=== PATIENT | male | born 1980 | race Two or more races ===

== ENCOUNTER 2023-05-21 23:10 | Inpatient (IN) | payer MEDICAID, OTHER ==
[~2023-05-21] VITALS: Ht 170.2 cm; Wt 81.9 kg
[2023-05-21 23:56] LABS: BASOPHILS % (AUTO) 1.2 % (0.0-2.0); EOSINOPHILS % (AUTO) 5.9 % (1.0-6.0); HEMATOCRIT 40.3 % (41-53); HEMOGLOBIN 13.5 g/dL (13.5-17.5); LYMPHOCYTES # (AUTO) 2.1 K/uL (1.0-4.8); LYMPHOCYTES % (AUTO) 35.5 % (22.0-44.0); MEAN CORPUSCULAR HEMOGLOBIN 28.5 pg (26.0-34.0); MEAN CORPUSCULAR HGB CONC 33.6 G/dL (31.0-37.0); MEAN CORPUSCULAR VOLUME 85 fL (80-100); MONOCYTES # (AUTO) 0.4 K/uL (0.1-1.0); MONOCYTES % (AUTO) 7.2 % (2.0-9.0); NEUTROPHILS # (AUTO) 2.9 K/uL (1.8-7.7); NEUTROPHILS % (AUTO) 50.2 % (40.0-70.0); PLATELET COUNT (AUTO) 323 K/uL (150-450); RED BLOOD CELL COUNT(AUTO) 4.76 MIL/uL (4.50-5.90); RED CELL DISTRIBUTION WIDTH 13.8 % (11.5-14.5); WHITE BLOOD COUNT (AUTO) 5.8 K/uL (4.5-11.0)
[2023-05-22] MEDS: LORazepam 2 MG/ML VIAL IM ONE (00:05)
[2023-05-22] MEDS: HALOPERIDOL LACTATE 5 MG/ML VIAL IM ONE (00:05)
[2023-05-22] MEDS: DiphenhydrAMINE HCL 50 MG/ML VIAL IM ONE (00:05)
[2023-05-22 00:08] LABS: ANION GAP 8 mmol/L (8-16); CALCIUM, TOTAL 9.3 mg/dL (8.8-10.5); CARBON DIOXIDE 29 mmol/L (22-29); CHLORIDE 104 mmol/L (98-107); CREATININE 0.74 mg/dL (0.60-1.30); GLOMERULAR FILTR. RATE CALC > 60 mL/min (>60); GLUCOSE,RANDOM 107 mg/dL (70-110); POTASSIUM 3.8 mmol/L (3.5-5.1); SODIUM SERUM 141 mmol/L (136-145); UREA NITROGEN, BLOOD 15 mg/dL (7-18)
[2023-05-22 00:14] LABS: ALANINE AMINOTRANSFERASE 31 U/L (12-78); ALBUMIN 3.5 g/dL (3.4-5.0); ALKALINE PHOSPHATASE 68 U/L (46-116); ASPARTATE AMINOTRANSFERASE 23 U/L (15-37); BILIRUBIN,TOTAL 0.3 mg/dL (0.1-1.0); TOTAL PROTEIN, SERUM 6.8 g/dL (6.4-8.2)
[2023-05-22 00:29] LABS: ALCOHOL, BLOOD (SERUM) < 3 mg/dL (0-10)
[2023-05-22] MEDS ORDERED: QUEtiapine FUMARATE 100 MG TABLET PO PRN (01:00)
[2023-05-22] MEDS ORDERED: OLANZapine 5 MG RAPDIS TABLET PO PRN ×3 (02:00→02:15)
[2023-05-22 07:41] LABS: COVID AG,FIA SOURCE NASAL SWAB
[2023-05-22 08:06] LABS: SARS-COV2 (COVID) ANTIGEN,FIA Negative (Negative)
[2023-05-22 08:26] LABS: APPEARANCE,URINE CLEAR (CLEAR); BILIRUBIN,URINE NEGATIVE (NEGATIVE); COLOR,URINE LIGHT YELLOW (YELLOW); GLUCOSE, URINE (UA) NEGATIVE (NEGATIVE); KETONES,URINE NEGATIVE (NEGATIVE); LEUKOCYTE ESTERASE ,URINE SMALL (NEGATIVE); NITRATE,URINE NEGATIVE (NEGATIVE); OCCULT BLOOD,URINE NEGATIVE (NEGATIVE); PH,URINE 6.5 (5.0-8.0); PH,URINE DRUG SCREEN 6.5 (5.0-8.0); PROTEIN,URINE TRACE mg/dL (NEGATIVE); SPECIFIC GRAVITIY, URINE 1.027 (1.003-1.030); UROBILINOGEN,URINE <=1.0 mg/dL (<=1.0)
[2023-05-22 08:33] LABS: ALCOHOL, URINE DRUG SCREEN NEGATIVE (NEGATIVE); AMPHET/METH SCREEN,URINE POSITIVE (NEGATIVE); BARBITURATE SCREEN, URINE NEGATIVE (NEGATIVE); BENZODIAZEPINES SCREEN,URINE NEGATIVE (NEGATIVE); CANNABINOID SCREEN,URINE POSITIVE (NEGATIVE); COCAINE SCREEN,URINE NEGATIVE (NEGATIVE); METHADONE SCREEN, URINE NEGATIVE (NEGATIVE); OPIATE SCREEN,URINE NEGATIVE (NEGATIVE); PHENCYCLIDINE SCREEN,URINE POSITIVE (NEGATIVE)
[2023-05-22 08:36] LABS: RBC,URINE 0-2 /HPF (0-2)
[2023-05-22 08:37] LABS: BACTERIA,URINE Few /HPF (None Seen)
[2023-05-22 08:50] VITALS: BP 130/77; PULSE 65; RESP 16; TEMP 97.2; O2SAT 100
[2023-05-22] MEDS ORDERED: GuaiFENesin/D-METHORPHAN [SUGAR-FREE] 200-20MG/10 ML SYRUP UDCUP PO PRN (14:00)
[2023-05-22] MEDS ORDERED: PROMETHAZINE HCL 25 MG TABLET PO PRN (14:00)
[2023-05-22] MEDS ORDERED: MAG HYDROX/ALUMINUM HYD/SIMETH ES 30 ML SUSPENSION UDCUP PO PRN (14:00)
[2023-05-22] MEDS ORDERED: HydrOXYzine PAMOATE 50 MG CAPSULE PO PRN (14:00)
[2023-05-22] MEDS ORDERED: MAGNESIUM HYDROXIDE SUSPENSION 30 ML UDCUP PO PRN (14:00)
[2023-05-22] MEDS ORDERED: LOPERAMIDE HCL 2 MG CAPSULE PO PRN (14:00)
[2023-05-22] MEDS ORDERED: TUBERCULIN, PURIFIED PROTEIN DERIVATIVE 5 TU/0.1 ML SYRINGE ID ONE (14:00)
[2023-05-22 16:26] VITALS: BP 131/78; PULSE 62; RESP 12; TEMP 98.4; O2SAT 97
[2023-05-22] MEDS: THIAMINE 100 MG TABLET PO SCH (17:27)
[2023-05-22] MEDS: INFLUENZA VIRUS VACCINE QVS 2023-24 (6MO+)/PF 60 MCG/0.5 ML SYRINGE IM. ONE (20:15)
[2023-05-22] MEDS: OLANZapine 5 MG RAPDIS TABLET PO SCH (20:35)
[2023-05-22] MEDS: MELATONIN 5 MG TABLET PO SCH (20:35)
[2023-05-22] MEDS: IBUPROFEN 600 MG TABLET PO PRN (20:36)
[2023-05-22 21:19] VITALS: BP 136/76; PULSE 68; RESP 19; TEMP 98.6; O2SAT 99
[2023-05-22 21:20] VITALS: RESP 19
[2023-05-22 21:36] VITALS: RESP 18
[2023-05-23] MEDS: LORazepam 2 MG TABLET PO PRN (08:09)
[2023-05-23] MEDS: FOLIC ACID 1 MG TABLET PO SCH (08:09)
[2023-05-23] MEDS: OMEGA-3/DHA/EPA/FISH OIL 1,000 MG CAPSULE PO SCH (08:09)
[2023-05-23] MEDS: MULTIVITAMINS WITH MINERALS, THERAPEUTIC TABLET PO SCH (08:09)
[2023-05-23] MEDS: NALTREXONE HCL 50 MG TABLET PO SCH (08:09)
[2023-05-23 08:20] LABS: CHOL/HDL RATIO 2.9 (4.2-7.3); THYROID STIMULATING HORMONE 0.78 uIU/mL (0.36-3.74)
[2023-05-23 08:43] VITALS: BP 131/81; PULSE 65; RESP 19; TEMP 97.4; O2SAT 100
[2023-05-23] MEDS: OLANZapine 10 MG RAPDIS TABLET PO SCH (20:18)
[2023-05-23 21:55] VITALS: BP 128/86; PULSE 72; RESP 18; TEMP 98.6; O2SAT 99
[2023-05-24 08:52] VITALS: BP 124/86; PULSE 74; RESP 17; TEMP 97.6; O2SAT 98
[2023-05-24 09:26] VITALS: BP 124/86; PULSE 74; RESP 17; TEMP 97.6; O2SAT 98
[2023-05-24 21:42] VITALS: BP 118/88; PULSE 92; RESP 17; TEMP 98; O2SAT 98
[2023-05-25] MEDS: ZOLPIDEM TARTRATE 10 MG TABLET PO PRN (03:09)
[2023-05-25 03:10] VITALS: BP 123/78; PULSE 88; RESP 18; TEMP 97.3
[2023-05-25 04:07] VITALS: RESP 18
[2023-05-25] MEDS: NITROFURANTOIN MONOHYD/M-CRYST 100 MG CAPSULE [MACROBID] PO SCH (08:28)
[2023-05-25 08:32] VITALS: BP 141/85; PULSE 66; RESP 17; TEMP 97.6; O2SAT 96
[2023-05-25] MEDS: LORazepam 0.5 MG TABLET PO PRN (16:14)
[2023-05-25 20:10] VITALS: BP 146/76; PULSE 68; RESP 18; TEMP 97.3; O2SAT 98
[2023-05-25] MEDS: DIVALPROEX SODIUM 500 MG ER TABLET PO SCH (20:46)
[2023-05-25] MEDS: OLANZapine 5 MG RAPDIS TABLET PO SCH (20:46)
[2023-05-26] MEDS: NICOTINE 21 MG/24 HOUR PATCH TD SCH (08:24)
[2023-05-26 08:34] VITALS: BP 135/79; PULSE 105; RESP 18; TEMP 97.4; O2SAT 95
[2023-05-26 10:17] VITALS: RESP 17
[2023-05-26 11:21] VITALS: RESP 17
[2023-05-26 17:15] VITALS: BP 132/75; RESP 18
[2023-05-26 19:15] VITALS: RESP 16
[2023-05-26 20:28] VITALS: BP 148/72; PULSE 76; RESP 19; TEMP 97.6; O2SAT 99
[2023-05-27 00:50] VITALS: RESP 18; O2SAT 98
[2023-05-27] MEDS: OLANZapine 5 MG RAPDIS TABLET PO PRN (01:03)
[2023-05-27 06:44] VITALS: RESP 18; O2SAT 98
[2023-05-27 08:48] VITALS: RESP 20; O2SAT 98
[2023-05-27 09:48] VITALS: RESP 20; O2SAT 99
[2023-05-27 22:12] VITALS: BP 139/74; PULSE 72; RESP 19; TEMP 98.2; O2SAT 98
[2023-05-28] MEDS ORDERED: HALOPERIDOL LACTATE 5 MG/ML VIAL ONE (03:55)
[2023-05-28] MEDS ORDERED: LORazepam 2 MG/ML VIAL ONE (03:55)
[2023-05-28] MEDS ORDERED: DiphenhydrAMINE HCL 50 MG/ML VIAL ONE (03:55)
[2023-05-28] MEDS: DiphenhydrAMINE HCL 50 MG/ML VIAL IM ONE (04:34)
[2023-05-28] MEDS: LORazepam 2 MG/ML VIAL IM ONE (04:35)
[2023-05-28] MEDS: HALOPERIDOL LACTATE 5 MG/ML VIAL IM ONE (04:35)
[2023-05-28 08:23] VITALS: BP 150/69; PULSE 76; RESP 17; TEMP 97.7; O2SAT 98
[2023-05-28 09:52] VITALS: RESP 20
[2023-05-28 11:06] VITALS: RESP 20
[2023-05-28 16:21] VITALS: BP 144/72; PULSE 79; RESP 18; TEMP 98.1
[2023-05-28] MEDS: OLANZapine 10 MG RAPDIS TABLET PO SCH (20:21)
[2023-05-29 00:17] VITALS: BP 140/78; PULSE 86; RESP 18; TEMP 98; O2SAT 99
[2023-05-29 02:08] VITALS: RESP 18
[2023-05-29 08:24] VITALS: BP 141/66; PULSE 72; RESP 17; TEMP 97.6; O2SAT 97
[2023-05-29 20:28] VITALS: BP 132/62; PULSE 76; RESP 19; TEMP 98.2; O2SAT 98
[2023-05-30 08:13] VITALS: BP 123/72; PULSE 82; RESP 18; TEMP 97.8; O2SAT 97
[2023-05-30] MEDS: BuPROPion HCL XL 150 MG ER TABLET PO SCH (08:33)
[2023-05-30] MEDS ORDERED: HALOPERIDOL LACTATE 5 MG/ML VIAL ONE (11:04)
[2023-05-30] MEDS ORDERED: LORazepam 2 MG/ML VIAL ONE (11:04)
[2023-05-30] MEDS ORDERED: DiphenhydrAMINE HCL 50 MG/ML VIAL ONE (11:04)
[2023-05-30] MEDS: LORazepam 2 MG/ML VIAL IM ONE (11:48)
[2023-05-30] MEDS: DiphenhydrAMINE HCL 50 MG/ML VIAL IM ONE (11:49)
[2023-05-30] MEDS: HALOPERIDOL LACTATE 5 MG/ML VIAL IM ONE (11:53)
[2023-05-30 23:17] VITALS: BP 134/86; PULSE 98; RESP 19; TEMP 98.6; O2SAT 100
[2023-05-31 01:11] VITALS: RESP 18
[2023-05-31 08:12] VITALS: BP 114/67; PULSE 85; RESP 18; TEMP 98.1; O2SAT 96
[2023-05-31] MEDS: FLUoxetine HCL 10 MG CAPSULE PO SCH (09:00)
[2023-05-31 21:06] VITALS: BP 112/68; PULSE 83; RESP 18; TEMP 97.9; O2SAT 98
[2023-06-01 09:23] VITALS: BP 116/73; PULSE 88; RESP 18; TEMP 98.3; O2SAT 100
[2023-06-01] MEDS ORDERED: OLAN10TA26 PO (16:40)
[2023-06-01] MEDS ORDERED: OMEG-135 PO (16:40)
[2023-06-01] MEDS ORDERED: PROZ10 PO (16:40)
[2023-06-01] MEDS ORDERED: NALT50TA33 PO (16:40)
[2023-06-01] MEDS ORDERED: DIVA500T69 PO (16:40)
[2023-06-01] MEDS ORDERED: MELA5TAB40 PO (16:40)
== END 2023-06-01 17:30 | disposition home or self-care (01) | DRG 750 ==
LOC: EMS 23:11 → B3A 05-22 07:21
PROVIDERS: ADMIT Psychiatry & Neurology Psychiatry; ATTEND Psychiatry & Neurology Psychiatry
PROC: GZHZZZZ Group Psychotherapy (ICD-10-PCS; principal; 2023-05-22)
PROC: GZ51ZZZ Individual Psychotherapy, Behavioral (ICD-10-PCS; 2023-05-22)
DX: F25.9 Schizoaffective disorder, unspecified (principal); G93.40 Encephalopathy, unspecified; F17.210 Nicotine dependence, cigarettes, uncomplicated; F15.20 Other stimulant dependence, uncomplicated; F10.20 Alcohol dependence, uncomplicated; F12.20 Cannabis dependence, uncomplicated; M54.9 Dorsalgia, unspecified; R45.851 Suicidal ideations; Z20.822 Contact with and (suspected) exposure to COVID-19; Z63.9 Problem related to primary support group, unspecified; Z55.9 Problems related to education and literacy, unspecified; Z65.3 Problems related to other legal circumstances; Z78.1 Physical restraint status; Z88.6 Allergy status to analgesic agent; Z59.02 Unsheltered homelessness; V89.2XXA Person injured in unspecified motor-vehicle accident, traffic, initial encounter; Y93.89 Activity, other specified; Y92.89 Other specified places as the place of occurrence of the external cause; Y99.8 Other external cause status
CPT/HCPCS: 70450; 72070; 72100; 80053; 80061; 80164; 80307; 81001; 83036; 84439; 84443; 85025; 86592; 87086; 87186; 99291; G0480; J1200; J1630; J2060; Q9967

== ENCOUNTER 2023-07-27 15:26 | Emergency (ER) | payer MEDICAID, OTHER ==
[~2023-07-27] VITALS: Ht 160 cm; Wt 87.3 kg
[~2023-07-27 15:26] MED LIST: DIVA500T69 PO; FLUO-351 PO; MELA5TAB40 PO; NALT50TA33 PO; OLAN10TA26 PO; OMEG-135 PO
[2023-07-27 18:23] LABS: COVID AG,FIA SOURCE NASAL SWAB
[2023-07-27 18:34] LABS: PH,URINE DRUG SCREEN 5.5 (5.0-8.0)
[2023-07-27 18:40] LABS: ALCOHOL, URINE DRUG SCREEN NEGATIVE (NEGATIVE); AMPHET/METH SCREEN,URINE POSITIVE (NEGATIVE); BARBITURATE SCREEN, URINE NEGATIVE (NEGATIVE); BENZODIAZEPINES SCREEN,URINE NEGATIVE (NEGATIVE); CANNABINOID SCREEN,URINE NEGATIVE (NEGATIVE); COCAINE SCREEN,URINE NEGATIVE (NEGATIVE); METHADONE SCREEN, URINE NEGATIVE (NEGATIVE); OPIATE SCREEN,URINE NEGATIVE (NEGATIVE); PHENCYCLIDINE SCREEN,URINE POSITIVE (NEGATIVE)
[2023-07-27 18:54] LABS: SARS-COV2 (COVID) ANTIGEN,FIA Negative (Negative)
[2023-07-27 19:30] VITALS: BP 148/84; PULSE 84; RESP 17; TEMP 98.6
== END 2023-07-27 20:30 | disposition home or self-care (01) ==
LOC: EMS 15:36
DX: M20.5X2 Other deformities of toe(s) (acquired), left foot (principal); F20.0 Paranoid schizophrenia; F15.90 Other stimulant use, unspecified, uncomplicated; Z88.6 Allergy status to analgesic agent; Z20.822 Contact with and (suspected) exposure to COVID-19
CPT/HCPCS: 80307; 99284

== ENCOUNTER 2023-08-24 11:38 | Inpatient (IN) | payer MEDICAID, OTHER ==
[~2023-08-24] VITALS: Ht 162.6 cm; Wt 87.0 kg
[2023-08-24] MEDS ORDERED: HALOPERIDOL LACTATE 5 MG/ML VIAL ONE (11:53)
[2023-08-24] MEDS ORDERED: DiphenhydrAMINE HCL 50 MG/ML VIAL ONE (11:53)
[2023-08-24] MEDS ORDERED: LORazepam 2 MG/ML VIAL ONE (11:53)
[2023-08-24] MEDS: DiphenhydrAMINE HCL 50 MG/ML VIAL IM ONE (12:13)
[2023-08-24] MEDS: HALOPERIDOL LACTATE 5 MG/ML VIAL IM ONE (12:13)
[2023-08-24] MEDS: LORazepam 2 MG/ML VIAL IM ONE (12:14)
[2023-08-24 12:35] LABS: BASOPHILS % (AUTO) 0.6 % (0.0-2.0); EOSINOPHILS % (AUTO) 5.5 % (1.0-6.0); HEMATOCRIT 41.3 % (41-53); HEMOGLOBIN 13.6 g/dL (13.5-17.5); LYMPHOCYTES % (AUTO) 30.6 % (22.0-44.0); MEAN CORPUSCULAR HEMOGLOBIN 27.9 pg (26.0-34.0); MEAN CORPUSCULAR VOLUME 84 fL (80-100); MONOCYTES # (AUTO) 0.5 K/uL (0.1-1.0); MONOCYTES % (AUTO) 7.2 % (2.0-9.0); NEUTROPHILS # (AUTO) 3.6 K/uL (1.8-7.7); NEUTROPHILS % (AUTO) 56.1 % (40.0-70.0); PLATELET COUNT (AUTO) 302 K/uL (150-450); RED BLOOD CELL COUNT(AUTO) 4.89 MIL/uL (4.50-5.90); RED CELL DISTRIBUTION WIDTH 14.9 % (11.5-14.5); WHITE BLOOD COUNT (AUTO) 6.5 K/uL (4.5-11.0)
[2023-08-24 12:46] LABS: ANION GAP 7 mmol/L (8-16); CALCIUM, TOTAL 9.1 mg/dL (8.8-10.5); CARBON DIOXIDE 28 mmol/L (22-29); CHLORIDE 105 mmol/L (98-107); CREATININE 0.69 mg/dL (0.60-1.30); GLOMERULAR FILTR. RATE CALC > 60 mL/min (>60); GLUCOSE,RANDOM 108 mg/dL (70-110); POTASSIUM 3.7 mmol/L (3.5-5.1); SODIUM SERUM 140 mmol/L (136-145); UREA NITROGEN, BLOOD 15 mg/dL (7-18)
[2023-08-24 13:17] LABS: COVID AG,FIA SOURCE NASAL SWAB
[2023-08-24 13:34] LABS: ALCOHOL, BLOOD (SERUM) < 3 mg/dL (0-10)
[2023-08-24 13:37] LABS: SARS-COV2 (COVID) ANTIGEN,FIA Negative (Negative)
[2023-08-25] MEDS ORDERED: ONDANSETRON HCL 4 MG TABLET PO PRN (07:15)
[2023-08-25] MEDS ORDERED: CloNIDine HCL 0.1 MG TABLET PO PRN (07:15)
[2023-08-25] MEDS ORDERED: ALBUTEROL SULFATE HFA 90 MCG/PUFF 8 GM INHALER IH PRN (07:15)
[2023-08-25] MEDS ORDERED: MAG HYDROX/ALUMINUM HYD/SIMETH ES 30 ML SUSPENSION UDCUP PO PRN (07:15)
[2023-08-25] MEDS ORDERED: DOCUSATE SODIUM 100 MG CAPSULE PO PRN (07:15)
[2023-08-25] MEDS ORDERED: NICOTINE 14 MG/24 HOUR PATCH TD PRN (07:15)
[2023-08-25] MEDS ORDERED: PETROLATUM,WHITE 28 GM JELLY TP PRN (07:15)
[2023-08-25] MEDS ORDERED: LOPERAMIDE HCL 2 MG CAPSULE PO PRN (07:15)
[2023-08-25] MEDS ORDERED: GuaiFENesin/D-METHORPHAN [SUGAR-FREE] 200-20MG/10 ML SYRUP UDCUP PO PRN (07:15)
[2023-08-25] MEDS ORDERED: MAGNESIUM HYDROXIDE SUSPENSION 30 ML UDCUP PO PRN (07:15)
[2023-08-25] MEDS ORDERED: OLAN10TA26 PO (11:33)
[2023-08-25] MEDS ORDERED: DIVA500T69 PO (11:33)
[2023-08-25] MEDS ORDERED: FLUO-351 PO (11:33)
[2023-08-25] MEDS: FLUoxetine HCL 10 MG CAPSULE PO SCH (12:18)
[2023-08-25] MEDS: DIVALPROEX SODIUM 500 MG ER TABLET PO SCH (21:22)
[2023-08-25] MEDS: OLANZapine 10 MG RAPDIS TABLET PO SCH (21:22)
[2023-08-26] MEDS: LORazepam 2 MG TABLET PO PRN (09:45)
[2023-08-26] MEDS: HALOPERIDOL 5 MG TABLET PO PRN (09:45)
[2023-08-26 10:48] LABS: BASOPHILS % (AUTO) 0.7 % (0.0-2.0); EOSINOPHILS % (AUTO) 6.5 % (1.0-6.0); HEMATOCRIT 46.5 % (41-53); HEMOGLOBIN 15.5 g/dL (13.5-17.5); LYMPHOCYTES # (AUTO) 1.9 K/uL (1.0-4.8); LYMPHOCYTES % (AUTO) 35.2 % (22.0-44.0); MEAN CORPUSCULAR HEMOGLOBIN 28.3 pg (26.0-34.0); MEAN CORPUSCULAR HGB CONC 33.2 G/dL (31.0-37.0); MEAN CORPUSCULAR VOLUME 85 fL (80-100); MONOCYTES # (AUTO) 0.3 K/uL (0.1-1.0); MONOCYTES % (AUTO) 5.4 % (2.0-9.0); NEUTROPHILS # (AUTO) 2.8 K/uL (1.8-7.7); NEUTROPHILS % (AUTO) 52.2 % (40.0-70.0); PLATELET COUNT (AUTO) 323 K/uL (150-450); RED BLOOD CELL COUNT(AUTO) 5.46 MIL/uL (4.50-5.90); RED CELL DISTRIBUTION WIDTH 14.8 % (11.5-14.5); WHITE BLOOD COUNT (AUTO) 5.4 K/uL (4.5-11.0)
[2023-08-26 11:02] VITALS: BP 124/66; PULSE 70; RESP 18; TEMP 98.4; O2SAT 96
[2023-08-26 11:08] LABS: HEMOGLOBIN A1C 6.1 % (3.8-5.6)
[2023-08-26 11:17] LABS: THYROID STIMULATING HORMONE 0.8 uIU/mL (0.36-3.74)
[2023-08-26 20:00] VITALS: BP 128/77; PULSE 77; RESP 18; TEMP 97.3; O2SAT 99
[2023-08-27 07:27] LABS: CHOL/HDL RATIO 2.9 (4.2-7.3)
[2023-08-27 10:28] VITALS: BP 166/95; PULSE 68; RESP 8; TEMP 98.2; O2SAT 98
[2023-08-27 21:03] VITALS: RESP 18
[2023-08-28 13:09] VITALS: RESP 17
[2023-08-28 21:18] VITALS: RESP 19
[2023-08-29 11:08] VITALS: BP 148/82; PULSE 72; RESP 18; TEMP 97.1; O2SAT 99
[2023-08-29 20:58] VITALS: BP 121/59; PULSE 73; RESP 18; TEMP 98.1; O2SAT 95
[2023-08-29] MEDS: ZOLPIDEM TARTRATE 10 MG TABLET PO PRN (21:34)
[2023-08-30 09:33] LABS: ALCOHOL, URINE DRUG SCREEN NEGATIVE (NEGATIVE); AMPHET/METH SCREEN,URINE NEGATIVE (NEGATIVE); BARBITURATE SCREEN, URINE NEGATIVE (NEGATIVE); BENZODIAZEPINES SCREEN,URINE NEGATIVE (NEGATIVE); CANNABINOID SCREEN,URINE NEGATIVE (NEGATIVE); COCAINE SCREEN,URINE NEGATIVE (NEGATIVE); METHADONE SCREEN, URINE NEGATIVE (NEGATIVE); OPIATE SCREEN,URINE NEGATIVE (NEGATIVE); PHENCYCLIDINE SCREEN,URINE POSITIVE (NEGATIVE)
[2023-08-30 09:47] LABS: APPEARANCE,URINE CLEAR (CLEAR); BILIRUBIN,URINE NEGATIVE (NEGATIVE); COLOR,URINE LIGHT YELLOW (YELLOW); GLUCOSE, URINE (UA) >=1000 mg/dL (NEGATIVE); KETONES,URINE TRACE mg/dL (NEGATIVE); LEUKOCYTE ESTERASE ,URINE LARGE (NEGATIVE); NITRATE,URINE NEGATIVE (NEGATIVE); OCCULT BLOOD,URINE NEGATIVE (NEGATIVE); PROTEIN,URINE NEGATIVE (NEGATIVE); SPECIFIC GRAVITIY, URINE 1.028 (1.003-1.030); UROBILINOGEN,URINE <=1.0 mg/dL (<=1.0)
[2023-08-30 09:56] LABS: RBC,URINE None Seen /HPF (0-2)
[2023-08-30 09:57] LABS: BACTERIA,URINE None Seen /HPF (None Seen)
[2023-08-30 11:07] VITALS: BP 143/76; PULSE 75; RESP 18; TEMP 97.9; O2SAT 97
[2023-08-30 20:44] VITALS: RESP 18
[2023-08-31 09:29] VITALS: BP 150/97; PULSE 81; RESP 18; TEMP 97.6; O2SAT 98
[2023-08-31 20:13] VITALS: RESP 18
[2023-09-01 15:18] VITALS: RESP 18
[2023-09-01 20:50] VITALS: RESP 18; TEMP 97.7
[2023-09-01 23:05] VITALS: BP 127/73; PULSE 70; RESP 18; TEMP 97.3; O2SAT 96
[2023-09-02 09:33] VITALS: BP 140/93; PULSE 62; RESP 18; TEMP 97.6; O2SAT 96
[2023-09-02 21:03] VITALS: RESP 18
[2023-09-03 11:00] VITALS: BP 150/80; PULSE 98; RESP 19; TEMP 97.6; O2SAT 100
[2023-09-03 12:43] VITALS: BP 150/86; PULSE 98; RESP 18; TEMP 97.6; O2SAT 98
[2023-09-03 20:07] VITALS: BP 119/69; PULSE 76; RESP 18; TEMP 98; O2SAT 95
[2023-09-03 20:40] VITALS: BP 119/69; PULSE 76; RESP 18; TEMP 98; O2SAT 97
[2023-09-04] MEDS: AmLODIPine BESYLATE 2.5 MG TABLET PO SCH (08:08)
[2023-09-04 09:26] VITALS: BP 117/83; PULSE 76; RESP 18; TEMP 97.5; O2SAT 98
[2023-09-04 20:23] VITALS: BP 141/80; PULSE 78; RESP 18; TEMP 98; O2SAT 98
[2023-09-04] MEDS: IBUPROFEN 400 MG TABLET PO PRN (20:26)
[2023-09-04 20:36] VITALS: BP 137/70; PULSE 78; RESP 18; TEMP 98; O2SAT 98
[2023-09-04 21:26] VITALS: RESP 18
[2023-09-05 12:50] VITALS: BP 120/67; PULSE 73; RESP 18; TEMP 97.9; O2SAT 98
[2023-09-05 20:00] VITALS: BP 145/74; PULSE 72; RESP 19; TEMP 97.7; O2SAT 98
[2023-09-06 09:00] VITALS: BP 92/52; PULSE 64; RESP 18; TEMP 97.3
[2023-09-06 20:00] VITALS: BP 106/57; PULSE 74; RESP 18; TEMP 97.6; O2SAT 98
[2023-09-07 12:23] VITALS: BP 146/74; PULSE 99; RESP 14; TEMP 97.8; O2SAT 99
[2023-09-07] MEDS ORDERED: FLUO-341 PO (13:18)
[2023-09-07] MEDS ORDERED: DIVA500T69 PO (13:18)
[2023-09-07] MEDS ORDERED: OLAN10TA26 PO (13:18)
== END 2023-09-07 15:30 | disposition home or self-care (01) | DRG 750 ==
LOC: EMS 11:38 → 3EC 19:37
PROVIDERS: ADMIT Psychiatry & Neurology Psychiatry; ATTEND Psychiatry & Neurology Psychiatry
PROC: GZHZZZZ Group Psychotherapy (ICD-10-PCS; principal; 2023-08-25)
DX: F25.0 Schizoaffective disorder, bipolar type (principal); R45.851 Suicidal ideations; Z79.899 Other long term (current) drug therapy; F32.A Depression, unspecified; Z96.659 Presence of unspecified artificial knee joint; G47.00 Insomnia, unspecified; Z20.822 Contact with and (suspected) exposure to COVID-19; R73.03 Prediabetes; Z88.6 Allergy status to analgesic agent; F41.9 Anxiety disorder, unspecified; E66.9 Obesity, unspecified; R03.0 Elevated blood-pressure reading, without diagnosis of hypertension; F19.10 Other psychoactive substance abuse, uncomplicated; Z68.32 Body mass index [BMI] 32.0-32.9, adult
CPT/HCPCS: 70450; 80048; 80061; 80164; 80307; 81001; 83036; 84443; 85025; 87086; 87186; 99285; G0480; J1200; J1630; J2060

== ENCOUNTER 2023-09-22 10:16 | Inpatient (IN) | payer MEDICAID, OTHER ==
[~2023-09-22] VITALS: Ht 162.6 cm; Wt 92.6 kg
[~2023-09-22 10:16] MED LIST changes: +FLUO-341 PO; -FLUO-351 PO; -MELA5TAB40 PO; -NALT50TA33 PO; -OMEG-135 PO
[2023-09-22 10:46] LABS: ANION GAP 5 mmol/L (8-16); CALCIUM, TOTAL 8.9 mg/dL (8.8-10.5); CARBON DIOXIDE 27 mmol/L (22-29); CHLORIDE 109 mmol/L (98-107); CREATININE 0.58 mg/dL (0.60-1.30); GLOMERULAR FILTR. RATE CALC > 60 mL/min (>60); GLUCOSE,RANDOM 118 mg/dL (70-110); POTASSIUM 3.9 mmol/L (3.5-5.1); SODIUM SERUM 141 mmol/L (136-145); UREA NITROGEN, BLOOD 11 mg/dL (7-18)
[2023-09-22 10:49] LABS: ALCOHOL, BLOOD (SERUM) < 3 mg/dL (0-10)
[2023-09-22 11:00] LABS: BASOPHILS % (AUTO) 1.2 % (0.0-2.0); EOSINOPHILS % (AUTO) 11.5 % (1.0-6.0); HEMATOCRIT 38.5 % (41-53); HEMOGLOBIN 12.7 g/dL (13.5-17.5); LYMPHOCYTES # (AUTO) 1.5 K/uL (1.0-4.8); LYMPHOCYTES % (AUTO) 33.2 % (22.0-44.0); MEAN CORPUSCULAR HEMOGLOBIN 28.3 pg (26.0-34.0); MEAN CORPUSCULAR VOLUME 86 fL (80-100); MONOCYTES # (AUTO) 0.4 K/uL (0.1-1.0); MONOCYTES % (AUTO) 9.3 % (2.0-9.0); NEUTROPHILS % (AUTO) 44.8 % (40.0-70.0); PLATELET COUNT (AUTO) 280 K/uL (150-450); RED BLOOD CELL COUNT(AUTO) 4.49 MIL/uL (4.50-5.90); WHITE BLOOD COUNT (AUTO) 4.6 K/uL (4.5-11.0)
[2023-09-22 11:00] LABS: GLUCOMETER DEV NAME(LOC) ERT.5; GLUCOSE,POINT OF CARE 116 MG/DL (70-110)
[2023-09-22 12:59] LABS: COVID AG,FIA SOURCE NASAL SWAB
[2023-09-22 13:31] LABS: SARS-COV2 (COVID) ANTIGEN,FIA Negative (Negative)
[2023-09-22 13:55] LABS: ALCOHOL, URINE DRUG SCREEN NEGATIVE (NEGATIVE); AMPHET/METH SCREEN,URINE POSITIVE (NEGATIVE); BARBITURATE SCREEN, URINE NEGATIVE (NEGATIVE); BENZODIAZEPINES SCREEN,URINE NEGATIVE (NEGATIVE); CANNABINOID SCREEN,URINE NEGATIVE (NEGATIVE); COCAINE SCREEN,URINE NEGATIVE (NEGATIVE); METHADONE SCREEN, URINE NEGATIVE (NEGATIVE); OPIATE SCREEN,URINE NEGATIVE (NEGATIVE); PHENCYCLIDINE SCREEN,URINE POSITIVE (NEGATIVE)
[2023-09-22 18:50] LABS: GLUCOMETER DEV NAME(LOC) ERT.5; GLUCOSE,POINT OF CARE 142 MG/DL (70-110)
[2023-09-23] MEDS: LORazepam 2 MG TABLET PO PRN (05:31)
[2023-09-23 09:29] VITALS: BP 147/82; PULSE 71; RESP 18; TEMP 97.8; O2SAT 99
[2023-09-23] MEDS ORDERED: MAGNESIUM HYDROXIDE SUSPENSION 30 ML UDCUP PO PRN (13:15)
[2023-09-23] MEDS ORDERED: CloNIDine HCL 0.1 MG TABLET PO PRN (13:15)
[2023-09-23] MEDS ORDERED: IBUPROFEN 400 MG TABLET PO PRN (13:15)
[2023-09-23] MEDS ORDERED: ONDANSETRON HCL 4 MG TABLET PO PRN (13:15)
[2023-09-23] MEDS ORDERED: DOCUSATE SODIUM 100 MG CAPSULE PO PRN (13:15)
[2023-09-23] MEDS ORDERED: ALBUTEROL SULFATE HFA 90 MCG/PUFF 8 GM INHALER IH PRN (13:15)
[2023-09-23] MEDS ORDERED: GuaiFENesin/D-METHORPHAN [SUGAR-FREE] 200-20MG/10 ML SYRUP UDCUP PO PRN (13:15)
[2023-09-23] MEDS ORDERED: MAG HYDROX/ALUMINUM HYD/SIMETH ES 30 ML SUSPENSION UDCUP PO PRN (13:15)
[2023-09-23] MEDS ORDERED: PETROLATUM,WHITE 28 GM JELLY TP PRN (13:15)
[2023-09-23] MEDS ORDERED: LOPERAMIDE HCL 2 MG CAPSULE PO PRN (13:15)
[2023-09-23] MEDS ORDERED: FLUO-418 PO (13:18)
[2023-09-23] MEDS: FLUoxetine HCL 20 MG CAPSULE PO SCH (14:35)
[2023-09-23] MEDS: QUEtiapine FUMARATE 100 MG TABLET PO PRN (19:24)
[2023-09-23] MEDS: OLANZapine 10 MG RAPDIS TABLET PO SCH (20:26)
[2023-09-23] MEDS: DIVALPROEX SODIUM 500 MG ER TABLET PO SCH (20:26)
[2023-09-23 20:29] VITALS: BP 144/85; PULSE 81; RESP 17; TEMP 96.2; O2SAT 97
[2023-09-23] MEDS: ZOLPIDEM TARTRATE 10 MG TABLET PO PRN (22:01)
[2023-09-24 08:14] LABS: HEMOGLOBIN A1C 7.5 % (3.8-5.6)
[2023-09-24 08:28] LABS: THYROID STIMULATING HORMONE 0.75 uIU/mL (0.36-3.74)
[2023-09-24 08:48] LABS: CHOL/HDL RATIO 2.7 (4.2-7.3)
[2023-09-24 09:57] VITALS: BP 109/68; PULSE 77; RESP 18; TEMP 97.6; O2SAT 97
[2023-09-24] MEDS: NICOTINE 14 MG/24 HOUR PATCH TD PRN (10:30)
[2023-09-24 20:05] VITALS: BP 120/66; PULSE 98; RESP 16; TEMP 97.6; O2SAT 95
[2023-09-25 10:35] VITALS: BP 134/70; PULSE 87; RESP 18; TEMP 98.3; O2SAT 98
[2023-09-25 20:29] VITALS: BP 132/74; PULSE 86; RESP 18; TEMP 98.1; O2SAT 97
[2023-09-26 14:31] VITALS: BP 110/63; PULSE 93; RESP 18; TEMP 98.9; O2SAT 97
[2023-09-26 23:20] VITALS: BP 104/60; PULSE 87; RESP 18; TEMP 97; O2SAT 97
[2023-09-27 10:28] VITALS: BP 131/86; PULSE 76; RESP 17; TEMP 97.9; O2SAT 97
[2023-09-27 22:08] VITALS: BP 141/88; PULSE 97; RESP 18; TEMP 97.3; O2SAT 97
[2023-09-28 10:21] VITALS: BP 132/72; PULSE 75; RESP 17; TEMP 98; O2SAT 95
[2023-09-28 22:04] VITALS: BP 147/78; PULSE 71; RESP 18; TEMP 97.4; O2SAT 97
[2023-09-29 10:21] VITALS: BP 127/72; PULSE 78; RESP 18; TEMP 97.4; O2SAT 96
[2023-09-29 22:31] VITALS: BP 156/70; PULSE 71; RESP 18; TEMP 97.8; O2SAT 97
[2023-09-30 09:01] VITALS: BP 139/79; PULSE 75; RESP 18; TEMP 97.6; O2SAT 98
[2023-09-30 20:06] VITALS: BP 124/72; PULSE 82; RESP 18; TEMP 98.1; O2SAT 97
[2023-10-01 08:03] VITALS: BP 115/71; PULSE 69; RESP 18; TEMP 97.9; O2SAT 98
[2023-10-01 20:29] VITALS: BP 140/87; PULSE 83; RESP 18; TEMP 97.6; O2SAT 98
[2023-10-02 09:09] VITALS: BP 115/76; PULSE 91; RESP 16; TEMP 97.3; O2SAT 99
[2023-10-02] MEDS ORDERED: HydrOXYzine PAMOATE 50 MG CAPSULE PO PRN (10:45)
== END 2023-10-02 15:30 | disposition home or self-care (01) | DRG 750 ==
LOC: EMS 10:16 → 3EI 23:46
PROVIDERS: ADMIT Psychiatry & Neurology Psychiatry; ATTEND Psychiatry & Neurology Psychiatry
PROC: GZHZZZZ Group Psychotherapy (ICD-10-PCS; principal; 2023-09-23)
DX: F25.1 Schizoaffective disorder, depressive type (principal); R45.851 Suicidal ideations; E11.9 Type 2 diabetes mellitus without complications; E66.9 Obesity, unspecified; D64.9 Anemia, unspecified; F15.10 Other stimulant abuse, uncomplicated; Z20.822 Contact with and (suspected) exposure to COVID-19; G47.00 Insomnia, unspecified; F25.0 Schizoaffective disorder, bipolar type; Z59.01 Sheltered homelessness; Z88.6 Allergy status to analgesic agent; Z79.899 Other long term (current) drug therapy; Z68.35 Body mass index [BMI] 35.0-35.9, adult
CPT/HCPCS: 80048; 80061; 80164; 80307; 82962; 83036; 84443; 85025; 87081; 99285; G0480

== ENCOUNTER 2023-11-28 18:33 | Inpatient (IN) | payer MEDICAID, OTHER ==
[~2023-11-28] VITALS: Ht 160 cm; Wt 97.5 kg
[~2023-11-28 18:33] MED LIST changes: -FLUO-341 PO; +FLUO-418 PO
[2023-11-28 19:29] LABS: BASOPHILS % (AUTO) 1.3 % (0.0-2.0); EOSINOPHILS % (AUTO) 7.6 % (1.0-6.0); HEMATOCRIT 40.4 % (41-53); HEMOGLOBIN 13.5 g/dL (13.5-17.5); LYMPHOCYTES # (AUTO) 1.4 K/uL (1.0-4.8); LYMPHOCYTES % (AUTO) 27.5 % (22.0-44.0); MEAN CORPUSCULAR HEMOGLOBIN 28.4 pg (26.0-34.0); MEAN CORPUSCULAR HGB CONC 33.3 G/dL (31.0-37.0); MEAN CORPUSCULAR VOLUME 85 fL (80-100); MONOCYTES # (AUTO) 0.7 K/uL (0.1-1.0); MONOCYTES % (AUTO) 14.8 % (2.0-9.0); NEUTROPHILS # (AUTO) 2.4 K/uL (1.8-7.7); NEUTROPHILS % (AUTO) 48.8 % (40.0-70.0); PLATELET COUNT (AUTO) 217 K/uL (150-450); RED BLOOD CELL COUNT(AUTO) 4.74 MIL/uL (4.50-5.90); RED CELL DISTRIBUTION WIDTH 14.6 % (11.5-14.5); WHITE BLOOD COUNT (AUTO) 4.9 K/uL (4.5-11.0)
[2023-11-28 19:42] LABS: ALCOHOL, BLOOD (SERUM) < 3 mg/dL (0-10); ANION GAP 11 mmol/L (8-16); CALCIUM, TOTAL 8.4 mg/dL (8.8-10.5); CARBON DIOXIDE 23 mmol/L (22-29); CHLORIDE 104 mmol/L (98-107); CREATININE 0.93 mg/dL (0.60-1.30); GLOMERULAR FILTR. RATE CALC > 60 mL/min (>60); GLUCOSE,RANDOM 128 mg/dL (70-110); POTASSIUM 3.6 mmol/L (3.5-5.1); SODIUM SERUM 138 mmol/L (136-145); UREA NITROGEN, BLOOD 13 mg/dL (7-18)
[2023-11-28 22:30] VITALS: O2SAT 100
[2023-11-28 22:31] LABS: COVID AG,FIA SOURCE NASAL SWAB
[2023-11-28 22:51] LABS: SARS-COV2 (COVID) ANTIGEN,FIA Negative (Negative)
[2023-11-28 23:25] VITALS: BP 160/100; PULSE 90; RESP 20; TEMP 98; O2SAT 99
[2023-11-29] MEDS: HALOPERIDOL 5 MG TABLET PO PRN (00:07)
[2023-11-29] MEDS: LORazepam 2 MG TABLET PO PRN (00:07)
[2023-11-29] MEDS: ZOLPIDEM TARTRATE 10 MG TABLET PO PRN (01:00)
[2023-11-29] MEDS ORDERED: DEXTROSE 50%-WATER 25 GM/50 ML SYRINGE IVP PRN (07:15)
[2023-11-29] MEDS ORDERED: PETROLATUM,WHITE 28 GM JELLY TP PRN (07:15)
[2023-11-29] MEDS ORDERED: BENZOCAINE/MENTHOL LOZENGE PO PRN (07:15)
[2023-11-29] MEDS ORDERED: BACITRACIN 28 GM OINTMENT TP PRN (07:15)
[2023-11-29] MEDS ORDERED: ONDANSETRON 4 MG TABLET PO PRN (07:15)
[2023-11-29] MEDS ORDERED: OMEPRAZOLE 20 MG CAPSULE PO PRN (07:15)
[2023-11-29] MEDS ORDERED: ALBUTEROL SULFATE HFA 90 MCG/PUFF 8 GM INHALER IH PRN (07:15)
[2023-11-29] MEDS ORDERED: DOCUSATE SODIUM 100 MG CAPSULE PO PRN (07:15)
[2023-11-29] MEDS ORDERED: LOPERAMIDE HCL 2 MG CAPSULE PO PRN (07:15)
[2023-11-29] MEDS ORDERED: CloNIDine HCL 0.1 MG TABLET PO PRN (07:15)
[2023-11-29] MEDS ORDERED: MAGNESIUM HYDROXIDE SUSPENSION 30 ML UDCUP PO PRN (07:15)
[2023-11-29 08:30] VITALS: BP 135/81; PULSE 95; RESP 19; TEMP 98.9; O2SAT 95
[2023-11-29] MEDS: LISINOPRIL 20 MG TABLET PO SCH (08:40)
[2023-11-29] MEDS: MetFORMIN HCL 500 MG TABLET PO SCH (08:41)
[2023-11-29] MEDS: INSULIN LISPRO 100 UNITS/ML SQ PRN (11:41)
[2023-11-29] MEDS: MAG HYDROX/ALUMINUM HYD/SIMETH ES 30 ML SUSPENSION UDCUP PO PRN (16:23)
[2023-11-29 16:24] VITALS: BP 116/74; PULSE 96; RESP 19; TEMP 99.2; O2SAT 97
[2023-11-29] MEDS: IBUPROFEN 600 MG TABLET PO PRN (16:24)
[2023-11-29 16:51] LABS: GLUCOMETER DEV NAME(LOC) 3E.I 2; GLUCOSE,POINT OF CARE 207 MG/DL (70-110)
[2023-11-29 17:24] VITALS: RESP 18
[2023-11-29 20:46] LABS: GLUCOMETER DEV NAME(LOC) 3E.I 2; GLUCOSE,POINT OF CARE 173 MG/DL (70-110)
[2023-11-29 22:09] VITALS: RESP 18
[2023-11-30 06:15] LABS: GLUCOMETER DEV NAME(LOC) 3E.I 2; GLUCOSE,POINT OF CARE 170 MG/DL (70-110)
[2023-11-30] MEDS ORDERED: DIVALPROEX SODIUM 500 MG ER TABLET PO SCH (09:00)
[2023-11-30] MEDS: FLUoxetine HCL 20 MG CAPSULE PO SCH (09:01)
[2023-11-30 09:10] VITALS: BP 130/74; PULSE 90; RESP 20; TEMP 99.9; O2SAT 95
[2023-11-30 10:13] VITALS: TEMP 98.3
[2023-11-30 11:04] LABS: COVID AG,FIA SOURCE NASAL SWAB
[2023-11-30 11:26] LABS: SARS-COV2 (COVID) ANTIGEN,FIA Negative (Negative)
[2023-11-30 11:50] LABS: GLUCOMETER DEV NAME(LOC) 3E.I 2; GLUCOSE,POINT OF CARE 186 MG/DL (70-110)
[2023-11-30 17:40] LABS: GLUCOMETER DEV NAME(LOC) 3E.I 2; GLUCOSE,POINT OF CARE 181 MG/DL (70-110)
[2023-11-30 20:26] LABS: GLUCOMETER DEV NAME(LOC) 3E.I 2; GLUCOSE,POINT OF CARE 158 MG/DL (70-110)
[2023-11-30 20:44] VITALS: BP 132/71; PULSE 77; RESP 18; TEMP 98.8; O2SAT 95
[2023-11-30] MEDS: DIVALPROEX SODIUM 500 MG ER TABLET PO SCH (20:53)
[2023-11-30] MEDS: OLANZapine 10 MG RAPDIS TABLET PO SCH (20:53)
[2023-12-01 05:36] LABS: GLUCOMETER DEV NAME(LOC) 3E.I 2; GLUCOSE,POINT OF CARE 204 MG/DL (70-110)
[2023-12-01 10:19] VITALS: BP 113/67; PULSE 64; RESP 18; TEMP 97.6; O2SAT 99
[2023-12-01 11:36] LABS: GLUCOMETER DEV NAME(LOC) 3E.I 2; GLUCOSE,POINT OF CARE 199 MG/DL (70-110)
[2023-12-01 17:16] LABS: GLUCOMETER DEV NAME(LOC) 3E.I 2; GLUCOSE,POINT OF CARE 190 MG/DL (70-110)
[2023-12-01 21:15] LABS: GLUCOMETER DEV NAME(LOC) 3E.I 2; GLUCOSE,POINT OF CARE 193 MG/DL (70-110)
[2023-12-01 21:50] VITALS: BP 141/87; PULSE 72; RESP 18; TEMP 97.8; O2SAT 98
[2023-12-02 06:36] LABS: GLUCOMETER DEV NAME(LOC) 3E.I 2; GLUCOSE,POINT OF CARE 218 MG/DL (70-110)
[2023-12-02 11:13] VITALS: BP 127/89; PULSE 66; RESP 18; TEMP 97.8; O2SAT 97
[2023-12-02 12:05] LABS: GLUCOMETER DEV NAME(LOC) 3E.I 2; GLUCOSE,POINT OF CARE 188 MG/DL (70-110)
[2023-12-02 17:21] LABS: GLUCOMETER DEV NAME(LOC) 3E.I 2; GLUCOSE,POINT OF CARE 227 MG/DL (70-110)
[2023-12-02 21:56] LABS: GLUCOMETER DEV NAME(LOC) 3E.I 2; GLUCOSE,POINT OF CARE 206 MG/DL (70-110)
[2023-12-02 22:37] VITALS: BP 130/78; PULSE 76; RESP 18; TEMP 97.9; O2SAT 97
[2023-12-03 06:56] LABS: GLUCOMETER DEV NAME(LOC) 3E.I 2; GLUCOSE,POINT OF CARE 186 MG/DL (70-110)
[2023-12-03 11:31] LABS: GLUCOMETER DEV NAME(LOC) 3E.I 2; GLUCOSE,POINT OF CARE 255 MG/DL (70-110)
[2023-12-03 14:18] VITALS: BP 143/81; PULSE 74; RESP 17; TEMP 97.6; O2SAT 98
[2023-12-03 16:35] LABS: GLUCOMETER DEV NAME(LOC) 3E.I 2; GLUCOSE,POINT OF CARE 246 MG/DL (70-110)
[2023-12-03] MEDS: GlipiZIDE 5 MG TABLET PO SCH (17:08)
[2023-12-03 20:37] VITALS: BP 129/83; PULSE 89; RESP 18; TEMP 97.7; O2SAT 97
[2023-12-03 22:31] LABS: GLUCOMETER DEV NAME(LOC) 3E.I 2; GLUCOSE,POINT OF CARE 210 MG/DL (70-110)
[2023-12-04 07:11] LABS: GLUCOMETER DEV NAME(LOC) 3E.I 2; GLUCOSE,POINT OF CARE 201 MG/DL (70-110)
[2023-12-04 10:13] VITALS: BP 123/58; PULSE 62; RESP 17; O2SAT 97
[2023-12-04 12:05] LABS: GLUCOMETER DEV NAME(LOC) 3E.I 2; GLUCOSE,POINT OF CARE 214 MG/DL (70-110)
[2023-12-04 17:40] LABS: GLUCOMETER DEV NAME(LOC) 3E.I 2; GLUCOSE,POINT OF CARE 248 MG/DL (70-110)
[2023-12-04 21:08] VITALS: BP 136/71; PULSE 79; RESP 18; TEMP 98; O2SAT 98
[2023-12-04 23:06] LABS: GLUCOMETER DEV NAME(LOC) 3E.I 2; GLUCOSE,POINT OF CARE 301 MG/DL (70-110)
[2023-12-05 06:50] LABS: GLUCOMETER DEV NAME(LOC) 3E.I 2; GLUCOSE,POINT OF CARE 264 MG/DL (70-110)
[2023-12-05 09:38] VITALS: BP 124/65; PULSE 78; RESP 18; TEMP 97.5; O2SAT 78
[2023-12-05] MEDS: FLUoxetine HCL 20 MG CAPSULE PO SCH (10:55)
[2023-12-05 11:50] LABS: GLUCOMETER DEV NAME(LOC) 3E.I 2; GLUCOSE,POINT OF CARE 293 MG/DL (70-110)
[2023-12-05] MEDS ORDERED: DIVA-153 PO (14:02)
[2023-12-05] MEDS ORDERED: OLAN10TA26 PO (14:02)
[2023-12-05] MEDS ORDERED: FLUO-418 PO (14:02)
[2023-12-05] MEDS ORDERED: NALT50TA6 PO (14:02)
[2023-12-05] MEDS ORDERED: NALT50TA33 PO (14:02)
[2023-12-05] MEDS ORDERED: GLIP5TAB16 PO (14:49)
[2023-12-05] MEDS ORDERED: LISI-894 PO (14:49)
[2023-12-05] MEDS ORDERED: METF-1211 PO (14:50)
== END 2023-12-05 15:35 | disposition home or self-care (01) | DRG 750 ==
LOC: EMS 18:38 → 3EI 23:14
PROVIDERS: ADMIT Psychiatry & Neurology Psychiatry; ATTEND Psychiatry & Neurology Psychiatry
DX: F25.1 Schizoaffective disorder, depressive type (principal); R45.851 Suicidal ideations; E11.9 Type 2 diabetes mellitus without complications; F15.10 Other stimulant abuse, uncomplicated; J44.9 Chronic obstructive pulmonary disease, unspecified; E66.9 Obesity, unspecified; Z68.38 Body mass index [BMI] 38.0-38.9, adult; Y90.9 Presence of alcohol in blood, level not specified; Z20.822 Contact with and (suspected) exposure to COVID-19; F41.9 Anxiety disorder, unspecified; G47.00 Insomnia, unspecified; F10.10 Alcohol abuse, uncomplicated; Z91.148 Patient's other noncompliance with medication regimen for other reason; Z88.6 Allergy status to analgesic agent; Z79.899 Other long term (current) drug therapy
CPT/HCPCS: 80048; 80164; 82962; 85025; 87081; 99285; G0480

== ENCOUNTER 2024-02-13 15:09 | Inpatient (IN) | payer MEDICAID ==
[~2024-02-13] VITALS: Ht 160 cm; Wt 93.3 kg
[~2024-02-13 15:09] MED LIST changes: +DIVA-153 PO; -DIVA500T69 PO; +GLIP5TAB16 PO; +LISI-894 PO; +METF-1211 PO; +NALT50TA33 PO; +NALT50TA6 PO
[2024-02-13] MEDS ORDERED: INFLUENZA VIRUS VACCINE TVS (6MO+) 2024-25/PF 45 MCG/0.5 ML SYRINGE IM. ONE (18:15)
[2024-02-13] MEDS ORDERED: PNEUMOCOCCAL VACCINE POLYVALENT 0.5 ML SYRINGE [PPSV23] IM. ONE (18:15)
[2024-02-13] MEDS ORDERED: LORazepam 2 MG TABLET PO PRN (22:15)
[2024-02-13] MEDS ORDERED: HALOPERIDOL 5 MG TABLET PO PRN (22:15)
[2024-02-13 23:14] VITALS: BP 147/85; PULSE 76; RESP 18; TEMP 96.6; O2SAT 98
[2024-02-13] MEDS: ZOLPIDEM TARTRATE 10 MG TABLET PO PRN (23:46)
[2024-02-14 00:36] LABS: GLUCOMETER DEV NAME(LOC) BV2S.; GLUCOSE,POINT OF CARE 162 MG/DL (70-110)
[2024-02-14] MEDS ORDERED: BACITRACIN 28 GM OINTMENT TP PRN (08:45)
[2024-02-14] MEDS ORDERED: CloNIDine HCL 0.1 MG TABLET PO PRN (08:45)
[2024-02-14] MEDS ORDERED: LOPERAMIDE HCL 2 MG CAPSULE PO PRN (08:45)
[2024-02-14] MEDS ORDERED: IBUPROFEN 600 MG TABLET PO PRN (08:45)
[2024-02-14] MEDS ORDERED: OMEPRAZOLE 20 MG CAPSULE PO PRN (08:45)
[2024-02-14] MEDS ORDERED: DOCUSATE SODIUM 100 MG CAPSULE PO PRN (08:45)
[2024-02-14] MEDS ORDERED: GLUCAGON,HUMAN RECOMBINANT 1 MG VIAL IM PRN (08:45)
[2024-02-14] MEDS ORDERED: MAG HYDROX/ALUMINUM HYD/SIMETH ES 30 ML SUSPENSION UDCUP PO PRN (08:45)
[2024-02-14] MEDS ORDERED: MAGNESIUM HYDROXIDE SUSPENSION 30 ML UDCUP PO PRN (08:45)
[2024-02-14] MEDS ORDERED: ONDANSETRON 4 MG TABLET PO PRN (08:45)
[2024-02-14] MEDS ORDERED: ALBUTEROL SULFATE HFA 90 MCG/PUFF 8 GM INHALER IH PRN (08:45)
[2024-02-14] MEDS ORDERED: PETROLATUM,WHITE 28 GM JELLY TP PRN (08:45)
[2024-02-14] MEDS ORDERED: BENZOCAINE/MENTHOL LOZENGE PO PRN (08:45)
[2024-02-14 09:01] VITALS: BP 142/72; PULSE 65; RESP 18; TEMP 97.2; O2SAT 97
[2024-02-14 09:01] LABS: HEMOGLOBIN A1C 7.4 % (3.8-5.6)
[2024-02-14 09:18] LABS: CHOL/HDL RATIO 3.1 (4.2-7.3); FREE T4 (FREE THYROXINE) 0.75 ng/dL (0.76-1.46); THYROID STIMULATING HORMONE 1.42 uIU/mL (0.36-3.74)
[2024-02-14] MEDS ORDERED: NICOTINE POLACRILEX 2 MG LOZENGE PO PRN (09:30)
[2024-02-14] MEDS: LISINOPRIL 20 MG TABLET PO SCH (10:08)
[2024-02-14] MEDS: NALTREXONE HCL 50 MG TABLET PO SCH (10:08)
[2024-02-14 13:21] LABS: GLUCOMETER DEV NAME(LOC) BV2S.; GLUCOSE,POINT OF CARE 120 MG/DL (70-110)
[2024-02-14] MEDS: GlipiZIDE 5 MG TABLET PO SCH (16:45)
[2024-02-14] MEDS: MetFORMIN HCL 500 MG TABLET PO SCH (17:07)
[2024-02-14 20:39] VITALS: BP 117/68; PULSE 63; RESP 18; TEMP 97.2; O2SAT 97
[2024-02-14 21:06] LABS: GLUCOMETER DEV NAME(LOC) BV2S.; GLUCOSE,POINT OF CARE 102 MG/DL (70-110)
[2024-02-15] VITALS (13 sets, daily range): BP systolic 110–144; BP diastolic 72–80; PULSE 67–82; RESP 16–19; TEMP 96.4–98; O2SAT 95–100
[2024-02-15 07:16] LABS: GLUCOMETER DEV NAME(LOC) BV2S.; GLUCOSE,POINT OF CARE 104 MG/DL (70-110)
[2024-02-15] MEDS: LITHIUM CARBONATE 300 MG CAPSULE PO SCH (10:03)
[2024-02-15] MEDS: DIVALPROEX SODIUM 500 MG DR TABLET PO SCH (10:03)
[2024-02-15] MEDS: RisperiDONE 3 MG TABLET PO SCH (10:03)
[2024-02-15 12:21] LABS: GLUCOMETER DEV NAME(LOC) BV2S.; GLUCOSE,POINT OF CARE 81 MG/DL (70-110)
[2024-02-15 18:05] LABS: GLUCOMETER DEV NAME(LOC) BV2S.; GLUCOSE,POINT OF CARE 167 MG/DL (70-110)
[2024-02-15] MEDS: INSULIN LISPRO 100 UNITS/ML SQ PRN (18:24)
[2024-02-16 06:31] LABS: GLUCOMETER DEV NAME(LOC) BV2S.; GLUCOSE,POINT OF CARE 100 MG/DL (70-110)
[2024-02-16 08:35] VITALS: BP_SYST 107; BP_SYST 119; BP_DIAS 58; BP_DIAS 97; PULSE 66; RESP 17; RESP 18; TEMP 97.8; O2SAT 98
[2024-02-16] MEDS ORDERED: LITH300C3 PO (09:11)
[2024-02-16] MEDS ORDERED: RISP3TAB77 PO (09:12)
[2024-02-16] MEDS ORDERED: DIVA-112 PO (09:12)
== END 2024-02-16 11:45 | disposition home or self-care (01) | DRG 750 ==
LOC: B2S 22:39
PROVIDERS: ADMIT Psychiatry & Neurology Psychiatry; ATTEND Psychiatry & Neurology Psychiatry
DX: F25.9 Schizoaffective disorder, unspecified (principal); E11.9 Type 2 diabetes mellitus without complications; E66.9 Obesity, unspecified; F10.10 Alcohol abuse, uncomplicated; F41.9 Anxiety disorder, unspecified; Y90.0 Blood alcohol level of less than 20 mg/100 ml; G47.00 Insomnia, unspecified; F19.10 Other psychoactive substance abuse, uncomplicated; J44.9 Chronic obstructive pulmonary disease, unspecified; Z91.51 Personal history of suicidal behavior; Z72.0 Tobacco use; Z68.36 Body mass index [BMI] 36.0-36.9, adult
CPT/HCPCS: 80061; 82962; 83036; 84439; 84443; 87081; 90686; 90732

== ENCOUNTER 2024-02-13 18:56 | Emergency (ER) | payer MEDICAID, OTHER ==
[~2024-02-13] VITALS: Ht 160 cm; Wt 77.3 kg
[2024-02-13 19:12] VITALS: TEMP 97.7
[2024-02-13 20:02] LABS: EOSINOPHILS % (AUTO) 9.4 % (1.0-6.0); HEMATOCRIT 39.7 % (41-53); HEMOGLOBIN 13.4 g/dL (13.5-17.5); LYMPHOCYTES # (AUTO) 2.7 K/uL (1.0-4.8); LYMPHOCYTES % (AUTO) 40.3 % (22.0-44.0); MEAN CORPUSCULAR HEMOGLOBIN 28.6 pg (26.0-34.0); MEAN CORPUSCULAR HGB CONC 33.7 G/dL (31.0-37.0); MEAN CORPUSCULAR VOLUME 85 fL (80-100); MONOCYTES # (AUTO) 0.6 K/uL (0.1-1.0); MONOCYTES % (AUTO) 9.4 % (2.0-9.0); NEUTROPHILS # (AUTO) 2.6 K/uL (1.8-7.7); NEUTROPHILS % (AUTO) 39.9 % (40.0-70.0); PLATELET COUNT (AUTO) 237 K/uL (150-450); RED BLOOD CELL COUNT(AUTO) 4.68 MIL/uL (4.50-5.90); RED CELL DISTRIBUTION WIDTH 15.5 % (11.5-14.5); WHITE BLOOD COUNT (AUTO) 6.6 K/uL (4.5-11.0)
[2024-02-13 20:11] LABS: ANION GAP 8 mmol/L (8-16); CALCIUM, TOTAL 8.1 mg/dL (8.8-10.5); CARBON DIOXIDE 27 mmol/L (22-29); CHLORIDE 106 mmol/L (98-107); CREATININE 0.53 mg/dL (0.60-1.30); GLOMERULAR FILTR. RATE CALC > 60 mL/min (>60); GLUCOSE,RANDOM 109 mg/dL (70-110); POTASSIUM 3.8 mmol/L (3.5-5.1); SODIUM SERUM 141 mmol/L (136-145); UREA NITROGEN, BLOOD 12 mg/dL (7-18)
[2024-02-13 20:15] LABS: COVID AG,FIA SOURCE NASAL SWAB
[2024-02-13] MEDS: IBUPROFEN 400 MG TABLET PO ONE (20:25)
[2024-02-13 20:34] LABS: SARS-COV2 (COVID) ANTIGEN,FIA Negative (Negative)
[2024-02-13 20:34] LABS: ALCOHOL, BLOOD (SERUM) < 3 mg/dL (0-10)
[2024-02-13 22:28] VITALS: BP 124/74; PULSE 58; RESP 18; O2SAT 100
== END 2024-02-13 23:26 | disposition short-term general hospital (02) ==
LOC: EMS 18:56
DX: F25.9 Schizoaffective disorder, unspecified (principal); M20.12 Hallux valgus (acquired), left foot; F15.10 Other stimulant abuse, uncomplicated; E11.9 Type 2 diabetes mellitus without complications; F31.9 Bipolar disorder, unspecified; F17.210 Nicotine dependence, cigarettes, uncomplicated; Z88.6 Allergy status to analgesic agent; Z20.822 Contact with and (suspected) exposure to COVID-19
CPT/HCPCS: 99285; 87426; 80048; 85025; 73630; G0480

== ENCOUNTER 2024-02-15 19:36 | Emergency (ER) | payer MEDICAID, OTHER ==
[~2024-02-15] VITALS: Ht 160 cm; Wt 94.5 kg
[2024-02-15] MEDS: IBUPROFEN 600 MG TABLET PO ONE (20:50)
[2024-02-15] MEDS: BACITRACIN 0.9 GM PACKET OINTMENT TP ONE (20:50)
[2024-02-15 21:00] VITALS: BP 127/68; PULSE 79; RESP 16; TEMP 97.9; O2SAT 100
[2024-02-16] MEDS ORDERED: LITH300C3 PO (09:11)
[2024-02-16] MEDS ORDERED: RISP3TAB77 PO (09:12)
[2024-02-16] MEDS ORDERED: DIVA-112 PO (09:12)
== END 2024-02-15 23:18 | disposition home or self-care (01) ==
LOC: EMS 19:36
DX: S80.01XA Contusion of right knee, initial encounter (principal); F25.1 Schizoaffective disorder, depressive type; R45.851 Suicidal ideations; E11.9 Type 2 diabetes mellitus without complications; F17.210 Nicotine dependence, cigarettes, uncomplicated; Z79.899 Other long term (current) drug therapy; W18.2XXA Fall in (into) shower or empty bathtub, initial encounter; Y93.E1 Activity, personal bathing and showering; Y92.89 Other specified places as the place of occurrence of the external cause; Y99.8 Other external cause status
CPT/HCPCS: 99283